=== PATIENT | female | born 1970 | race Caucasian/White ===

== ENCOUNTER 2023-10-14 13:10 | Emergency (ER) | payer MEDICAID, SELFPAY ==
[2023-10-14 13:17] VITALS: BP 177/100; PULSE 89; RESP 16; TEMP 36.8; O2SAT 98; BMI 31.1
--- NOTE | 2023-10-14 13:31 | W.ED.DENTAL ---
HPI - Dental/Oral General: Chief complaint: Dental/Oral Stated complaint: right side mouth pain Time Seen by Provider: 10/14/23 13:16 Source: patient Mode of arrival: ambulatory Limitations: no limitations History of Present Illness: Patient is a 53-year-old female presents to ED today for dental complaints. Patient states 10 years ago she broke one of her right back molars and has temporarily had pain with it ever since. She states around Dania time (approximately 2 to 3 weeks ago) she began noticing worsening pain and swelling. Patient states in [place] she was seen in the emergency department and had IV steroids and antibiotics given to her as well as a CT scan. She states she was allowed discharge home with oral antibiotics (Keflex and Bactrim). She states she completed all of the antibiotics and felt like she was getting better but states the swelling then returned. She states she saw a dentist in [place] approximately 3 to 4 days ago and had the tooth extracted. She states she was told there was a dental abscess present and that the dentist could drain it but was going to charge her another$138 on top of the cost of the exam/extraction and she could not afford it. They did not place her on antibiotics following the extraction. She states her right jaw has continued to hurt and continues to be swollen. No trouble eating/drinking/swallowing. No fevers. No neck pain/swelling. MD Complaint: tooth pain Onset (ago): week(s) Duration: constant Severity: moderate Relieving factors: nothing Exacerbating factors: nothing Context: history of dental caries and poor dental care Associated symptoms: Denies ear or mastoid pain, fever(s) or odynophagia Treatment prior to arrival: other (antibiotic; tooth extraction) Review of Systems Const: Denies: fever(s), chills, body aches, fatigue or malaise ENMT: Reports: mouth pain and dental pain; Denies: throat pain, odynophagia, hoarseness, swelling of lips/tongue, oral sores, bleeding gums, ear or mastoid pain, nasal discharge, nasal congestion or sinus pain Card: Denies: chest pain Resp: Denies: dyspnea GI: Denies: nausea or vomiting Musc: Denies: neck pain, back pain, extremity pain or joint pain Skin/Breast: Denies: rash Neuro: Denies: headache(s) Physical Exam Const: COMMON NORMALS: no acute distress, average body habitus, patient oriented x3, no limitations, healthy appearing, alert and well nourished HENMT: COMMON NORMALS: normocephalic, atraumatic, external ears normal, EAC's normal, TM's normal bilaterally and Normal external nose present HEAD & SCALP: normal to inspection, normocephalic and atraumatic FACE & SINUS: sinuses nontender and face symmetric FACE & SINUS IMAGES: 1. mild swelling/edema; nothing that extends submandibular NOSE: Normal external nose present EXTERNAL EAR: Yes external ears normal EXTERNAL AUDITORY CANAL: EAC's normal TYMPANIC MEMBRANE: TM's normal bilaterally MOUTH: Normal oral and palatal mucosa present and lip normal TEETH & GINGIVA IMAGES: 1. recent extraction; gingival fluctuance laterally noted THROAT: posterior oropharynx normal and tonsils normal Eye: COMMON NORMALS: Equal, round and reactive pupils present and EOMs intact bilaterally GENERAL EYE: appearance normal, both eyes and all related structures PUPIL: Yes Equal, round and reactive pupils present Neck/C-Spine: COMMON NORMALS: full ROM, no lymphadenopathy and no meningeal signs GENERAL: Yes normal visual inspection Resp: COMMON NORMALS: normal respiratory effort and clear to auscultation bilaterally AUSCULTATION: clear to auscultation bilaterally Cardio: COMMON NORMALS: regular rate and regular rhythm RATE: regular rate RHYTHM: regular rhythm Neuro: COMMON NORMALS: patient oriented x3 and CN's II-XII intact bilaterally SENSORIUM/ORIENTATION: Yes alert MENINGEAL SIGNS: Yes no meningeal signs Procedures Abscess I/D Site: oral Side (if applicable): right Local Anesthetic: lidocaine 1% and with epi Amount of anesthesia used (mL): 2.0 Technique: needle aspiration (18g) Amount of fluid expressed (mL): 3 Complications: other (none; pt reports feeling better) Course Vital Signs: Vital signs: Vital Signs Temperature 98.2 F 10/14/23 13:17 Pulse Rate 89 10/14/23 13:17 Respiratory Rate 16 10/14/23 13:17 Blood Pressure 177/100 10/14/23 13:17 Pulse Oximetry 98 10/14/23 13:17 Oxygen Delivery Me thod Room Air 10/14/23 13:17 MDM - Dental/Oral Medical Decision Making Patient here for superficial dental abscess. No evidence for deep space infection. Drained with 18g successfully. She will be placed on Clindamycin. Reports she has a plan to follow up with her dentist. Return to ED precautions given. Differential Diagnosis Likely gingival abscess, dental caries, toothache and dental abscess Medical Records I reviewed the patient's medical records. No radiology studies performed this visit Discharge Plan Discharge Patient Disposition: Home Clinical Impression: Dental abscess Condition: Stable Prescriptions: New clindamycin HCl 300 mg capsule 300 mg PO Q6H 7 Days Qty: 28 0RF hydrocodone-acetaminophen 5-325 mg tablet 1 tab PO Q6H PRN (Reason: pain) Qty: 14 0RF Discharge Orders: Discharge ED (Routine); Ordered 10/14/23 Ordered By: Starr Gonzales Patient Instructions: Toothache (ED), Opioid Safety, Pain Management, Dental Abscess Coding Level of Care Code ED Infectious Diseases Physician for Jhonny Moscoso
== END 2023-10-14 15:11 | disposition home or self-care (01) ==
PROVIDERS: Emergency Provider Physician Assistant
DX: K04.7 Periapical abscess without sinus (principal)
CPT/HCPCS: 41800; 99283

== ENCOUNTER → 2024-03-11 09:56 | Outpatient (BNVA) | payer MEDICAID, SELFPAY | PROVIDERS: Visit Provider Nurse Practitioner Family | DX: L23.9 Allergic contact dermatitis, unspecified cause (principal); L82.1 Other seborrheic keratosis; D22.39 Melanocytic nevi of other parts of face; L72.0 Epidermal cyst; D48.5 Neoplasm of uncertain behavior of skin | CPT/HCPCS: 11102; 17110; 99204 ==

== ENCOUNTER → 2024-04-24 08:31 | Outpatient (BNVA) | payer MEDICAID, SELFPAY | PROVIDERS: Visit Provider Dermatology | DX: D22.5 Melanocytic nevi of trunk (principal); D48.5 Neoplasm of uncertain behavior of skin; L91.8 Other hypertrophic disorders of the skin; L72.0 Epidermal cyst | CPT/HCPCS: 11102; 11200; 11402; 13101; 99213 ==

== ENCOUNTER → 2024-05-17 10:45 | Outpatient (BNVA) | payer MEDICAID, SELFPAY | PROVIDERS: Visit Provider Dermatology | DX: L72.0 Epidermal cyst (principal); I78.8 Other diseases of capillaries; D22.5 Melanocytic nevi of trunk; L91.8 Other hypertrophic disorders of the skin | CPT/HCPCS: 11200; 99213 ==